=== PATIENT | male | born 1955 | race African-American/Black ===

== ENCOUNTER 2019-03-17 09:29 | Emergency (ER) | payer MEDICAID ==
[~2019-03-17] VITALS: Ht 180.3 cm; Wt 83.0 kg
[2019-03-17] MEDS ORDERED: KETOROLAC 60MG/2ML VIAL IM ONE (11:00)
[2019-03-17 11:07] VITALS: BP 135/108
== END 2019-03-17 12:07 | disposition home or self-care (01) ==
LOC: ER 09:29
DX: S46.011S Strain of muscle(s) and tendon(s) of the rotator cuff of right shoulder, sequela (principal); V03.90XS Pedestrian on foot injured in collision with car, pick-up truck or van, unspecified whether traffic or nontraffic accident, sequela
CPT/HCPCS: 73030; 96372; 99283; J1885

== ENCOUNTER 2020-04-04 17:11 | Emergency (ER) | payer MEDICAID, MEDICARE ==
[~2020-04-04] VITALS: Ht 180.3 cm; Wt 95.0 kg
[2020-04-04 17:12] VITALS: BP 126/76
== END 2020-04-04 19:29 | disposition left against medical advice (07) ==
LOC: ER 17:11
DX: M79.605 Pain in left leg (principal)
CPT/HCPCS: 99281

== ENCOUNTER 2020-05-03 12:07 | Emergency (ER) | payer MEDICARE ==
[~2020-05-03] VITALS: Ht 180.3 cm; Wt 87.0 kg
[2020-05-03] MEDS ORDERED: ONDANSETRON 4MG ODT PO ONE (12:45)
[2020-05-03] MEDS ORDERED: KETOROLAC 60MG/2ML VIAL IM ONE (12:45)
[2020-05-03] MEDS ORDERED: MORPHINE SULFATE 10 MG/ML CPJ IM ONE (12:45)
[2020-05-03] MEDS ORDERED: IBUP-2028 MT (14:41)
[2020-05-03] MEDS ORDERED: HYDR-4346 MT (14:41)
[2020-05-03 16:16] VITALS: BP 120/78
== END 2020-05-03 16:17 | disposition home or self-care (01) ==
LOC: ER 12:07
DX: M54.40 Lumbago with sciatica, unspecified side (principal); M19.90 Unspecified osteoarthritis, unspecified site; F17.210 Nicotine dependence, cigarettes, uncomplicated; Z71.6 Tobacco abuse counseling
CPT/HCPCS: 93005; 96372; 99284; 99406; J1885; J2270; Q0162